=== PATIENT | male | born 1975 | race African-American/Black ===

== ENCOUNTER 2021-04-08 11:13 | Emergency (ER) | payer MEDICAID ==
[~2021-04-08] VITALS: Ht 175.3 cm; Wt 129.3 kg
[2021-04-08 11:13] VITALS: BP_SYST 108
--- NOTE | 2021-04-08 11:19 | NUR ---
Pt triaged per discharge door operator and placed in room 6 for evaluation.
--- NOTE | 2021-04-08 11:20 | NUR ---
Dr Mcintosh at bedside to evaluate patient.
--- NOTE | 2021-04-08 11:22 | NUR ---
First contact with patient. Awake, alert, and oriented x 3. In no acute distress. Placed on monitoring manager. Will continue to monitor.
--- NOTE | 2021-04-08 11:35 | NUR ---
Patient reporting dennis LE swelling x 3 weeks, worse in the right. Patient initially mentioned mosquito bites, the mentioned swelling increases as day progresses, especially in right leg.
--- NOTE | 2021-04-08 11:38 | NUR ---
Xrays for right leg being completed at bedside.
--- NOTE | 2021-04-08 11:49 | NUR ---
# 18 gauge angiocath placed to R AC. Use of asceptic technique. Opsite placed over site. Blood return noted. Blood for lab drawn from site. Flushed with 10 cc of normal saline. No evidence of infiltration noted. Patient tolerated well.
[2021-04-08 12:18] LABS: BASOPHILS % (AUTO) 1.1 % (0.0-2.0); EOSINOPHILS # (AUTO) 0.1 K/uL (0.0-0.4); EOSINOPHILS % (AUTO) 2.5 % (0.0-4.0); HEMATOCRIT 37.9 % (36-54); HEMOGLOBIN 12.9 g/dL (14.0-18.0); LYMPHOCYTES # (AUTO) 1.4 K/uL (1.0-5.5); LYMPHOCYTES % (AUTO) 41.6 % (20.5-51.5); MEAN CORPUSCULAR HEMOGLOBIN 31 pg (27-31); MEAN CORPUSCULAR HGB CONC 34 % (32-36); MEAN CORPUSCULAR VOLUME 92 fL (79.0-98.0); MONOCYTES # (AUTO) 0.2 K/uL (0.0-1.0); MONOCYTES % (AUTO) 6.4 % (1.7-9.3); NEUTROPHILS # (AUTO) 1.6 K/uL (1.8-7.7); NEUTROPHILS % (AUTO) 48.4 % (40.0-70.0); PLATELET COUNT (AUTO) 248 K/uL (130-430); RED BLOOD CELL COUNT(AUTO) 4.12 MIL/uL (4.2-6.2); RED CELL DISTRIBUTION WIDTH 14.6 % (9.0-15.0); WHITE BLOOD COUNT (AUTO) 3.4 K/uL (4.8-10.8)
[2021-04-08 12:26] LABS: CREATININE 1.01 mg/dL (0.55-1.30); POTASSIUM 4.1 mmol/L (3.5-5.1)
[2021-04-08 12:31] LABS: ALBUMIN 3.4 g/dL (3.4-4.8); C-REACTIVE PROTEIN QUANT 0.7 mg/dL (0-0.5); TOTAL BILIRUBIN 0.2 mg/dL (0.0-1.0)
--- NOTE | 2021-04-08 12:35 | NUR ---
Ultrasound to right LE being completed at bedside
[2021-04-08] MEDS ORDERED: CLIN-22 PO (13:01)
[2021-04-08 13:09] VITALS: BP_SYST 108
--- NOTE | 2021-04-08 13:10 | NUR ---
Patient given written and verbal discharge instructions and verbalizes understanding. ER MD discussed with patient the results and treatment provided. Patient in stable condition. ID arm band removed. IV catheter removed intact and dressing applied, no active bleeding. Rx of Clindamycin given. Patient educated on pain management and to follow up with PMD. Pain improved. Opportunity for questions provided and answered. Medication side effect fact sheet provided.
[2021-04-08 13:22] LABS: PROTHROMBIN TIME 10.4 SECS (9.5-12.5)
== END 2021-04-08 13:09 | disposition home or self-care (01) ==
LOC: SED 11:13
DX: L03.115 Cellulitis of right lower limb (principal); Z88.6 Allergy status to analgesic agent; Z79.899 Other long term (current) drug therapy
CPT/HCPCS: 36415; 73590-TC; 80053; 83605; 85025; 85610-TC; 85730-TC; 86140; 93971; 99285